=== PATIENT | male | born 1985 | race Caucasian/White ===

== ENCOUNTER 2016-11-21 06:40 | Emergency (ER) | payer OTHER ==
[~2016-11-21] VITALS: Ht 172.7 cm; Wt 92.3 kg
[2016-11-21 06:48] VITALS: Ht 172.7 cm; Wt 92.3 kg
[2016-11-21] MEDS ORDERED: SODIUM CHLORIDE 0.9% 1000ML 2,000 ML IV STA (06:55)
[2016-11-21] MEDS ORDERED: MoRPHine SULFATE 4 MG/ML 1 ML CARP\\VIAL IV STA (06:55)
[2016-11-21] MEDS ORDERED: ONDANSETRON INJ 2 MG/ML 2 ML VIAL IV STA (06:55)
--- NOTE | 2016-11-21 07:04 | EMERGENCY ROOM VISIT NOTE ---
History Report prepared by Timothy: Aide Silva Under the Supervision of: Dr. Shanelle Mcnamara M.D. First contact with patient: 06:47 Chief Complaint: FLU LIKE SX Stated Complaint: FLU LIKE SYMPTOMS History of Present Illness The patient is a 31 year old male who presents to the Emergency Room with complaints of persistent flu-like symptoms for the past 5 days. He reports nausea and vomiting intermittently for 5 days. He is also complaining of a headache and "shivering." He has felt feverish, but he has not taken his temperature. He has been taking aspirin for his symptoms but has been unable to keep it down. The patient denies hematemesis, diarrhea, abdominal pain, hematochezia, and melena. He has not had any bowel movements since his symptoms began. He recently traveled back to the area from [place] about a week and a half ago. Source of History: patient Onset: 5 days ago Position: other (global) Quality: other (flu-like symtpoms) Timing: other (persistent) Associated Symptoms: + headache, + nausea, + vomiting, No abdominal pain, No melena, No hematochezia, No diarrhea Review of Systems See HPI for pertinent positives & negatives. A total of 10 systems reviewed and were otherwise negative. Past Medical & Surgical Medical Problems: (1) Intractable vomiting (2) No significant medical problems Family History No pertinent history stated. 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 Current/Historical Medications Scheduled Ondasetron Odt (Zofran Odt), 4 MG SL Q6H Allergies Coded Allergies: No Known Allergies (Unverified , 11/21/16) Physical Exam Vital Signs Date Time Temp Pulse Resp B/P (MAP) Pulse Ox O2 Delivery O2 Flow Rate FiO2 11/21/16 11:37 36.9 76 18 95/60 98 11/21/16 11:10 36.9 73 20 95/60 98 Room Air 11/21/16 10:20 78 11/21/16 10:05 72 16 95/47 96 Room Air 11/21/16 09:10 91 21 104/59 94 Room Air 11/21/16 08:00 105 114/67 94 Room Air 11/21/16 07:52 99 23 133/80 99 Room Air 11/21/16 07:04 39.3 11/21/16 06:51 104 11/21/16 06:48 37.3 111 26 132/81 100 Room Air Physical Exam Vital signs reviewed. General: Uncomfortable-appearing 31 year old male, in no significant distress. HEENT: No scleral icterus, PERRLA, neck supple. Atraumatic. Cardiovascular: Regular rate and rhythm, no extra sounds. Pulmonary: Clear to auscultation bilaterally, normal work of breathing. Abdomen: Soft, nontender, nondistended, positive bowel sounds. Musculoskeletal: Atraumatic, no peripheral edema. Neurologic: Patient awake alert and oriented x 3, full strength in all 4 extremities. Cranial nerves 2 through 12 grossly intact. No meningeal signs. Skin: Warm, dry, no rash Medical Decision & Procedures ER Provider Diagnostic Interpretation: Radiology results as stated below per my review and radiologist interpretation: CT SCAN OF THE BRAIN WITHOUT IV CONTRAST CLINICAL HISTORY: Headache. Vomiting. COMPARISON STUDY: No priors. TECHNIQUE: Unenhanced axial CT scan of the brain is performed from the vertex to the skull base. Automated dose control exposure was utilized. A dose lowering technique was utilized adhering to the principles of ALARA. CT DOSE: 537.48 mGy.cm FINDINGS: Brain parenchyma: The brain parenchyma is normal in appearance. There is no hemorrhage, mass effect, or evidence of acute territorial ischemia by CT criteria. Godwin-white matter is preserved. No extra-axial fluid collection is seen. Ventricles, sulci, cisterns: Normal in configuration. Intracranial vasculature: The visualized intracranial vasculature at the skull base is normal in appearance. Calvarium: Unremarkable. Sinuses and mastoids: The visualized paranasal sinuses are clear. The mastoid air cells are well pneumatized. Orbits: The bony orbits are grossly intact. IMPRESSION: No acute intracranial abnormality. Electronically signed by: Frankie Babcock M.D. 11/21/2016 7:48 AM Dictated Date/Time: 11/21/2016 7:47 AM ABDOMEN 2VIEW W/PA CHEST RTN CLINICAL HISTORY: vomiting, 5 days COMPARISON STUDY: No previous studies for comparison. FINDINGS: The soft tissues, psoas shadows, renal outlines and intestinal gas pattern appear normal. There is no evidence for bowel obstruction. There is no evidence for free intraperitoneal air. No abnormal abdominal calcifications are seen. A frontal view of the chest was performed and is unremarkable. IMPRESSION: Normal study. The above report was generated using voice recognition software. It may contain grammatical, syntax or spelling errors. Electronically signed by: Renny Yee M.D. 11/21/2016 9:03 AM Dictated Date/Time: 11/21/2016 9:02 AM Laboratory Results 11/21/16 07:13 Red Blood Count 4.85, Mean Corpuscular Volume 85.4, Mean Corpuscular Hemoglobin 30.3, Mean Corpuscular Hemoglobin Concent 35.5, Mean Platelet Volume 10.0, Neutrophils (%) (Auto) 83.9, Lymphocytes (%) (Auto) 8.5, Monocytes (%) (Auto) 7.2, Eosinophils (%) (Auto) 0.2, Basophils (%) (Auto) 0.2, Neutrophils # (Auto) 5.50, Lymphocytes # (Auto) 0.56, Monocytes # (Auto) 0.47, Eosinophils # (Auto) 0.01, Basophils # (Auto) 0.01 11/21/16 07:13 Test 11/21/16 07:13 11/21/16 07:20 White Blood Count 6.55 K/uL (4.8-10.8) Red Blood Count 4.85 M/uL (4.7-6.1) Hemoglobin 14.7 g/dL (14.0-18.0) Hematocrit 41.4 % (42-52) Mean Corpuscular Volume 85.4 fL (80-100) Mean Corpuscular Hemoglobin 30.3 pg (25-34) Mean Corpuscular Hemoglobin Concent 35.5 g/dl (32-36) Platelet Count 115 K/uL (130-400) Mean Platelet Volume 10.0 fL (7.4-10.4) Neutrophils (%) (Auto) 83.9 % Lymphocytes (%) (Auto) 8.5 % Monocytes (%) (Auto) 7.2 % Eosinophils (%) (Auto) 0.2 % Basophils (%) (Auto) 0.2 % Neutrophils # (Auto) 5.50 K/uL (1.4-6.5) Lymphocytes # (Auto) 0.56 K/uL (1.2-3.4) Monocytes # (Auto) 0.47 K/uL (0.11-0.59) Eosinophils # (Auto) 0.01 K/uL (0-0.5) Basophils # (Auto) 0.01 K/uL (0-0.2) RDW Standard Deviation 40.6 fL (36.4-46.3) RDW Coefficient of Variation 13.0 % (11.5-14.5) Immature Granulocyte % (Auto) 0.0 % Immature Granulocyte # (Auto) 0.00 K/uL (0.00-0.02) Anion Gap 8.0 mmol/L (3-11) Est Creatinine Clear Calc Drug Dose 75.1 ml/min Estimated GFR () 66.5 Estimated GFR (Non- 57.4 BUN/Creatinine Ratio 7.9 (10-20) Calcium Level 9.4 mg/dl (8.5-10.1) Magnesium Level 1.7 mg/dl (1.8-2.4) Total Bilirubin 1.2 mg/dl (0.2-1) Direct Bilirubin 0.2 mg/dl (0-0.2) Aspartate Amino Transf (AST/SGOT) 23 U/L (15-37) Alanine Aminotransferase (ALT/SGPT) 22 U/L (12-78) Alkaline Phosphatase 65 U/L (45-117) Total Protein 8.2 gm/dl (6.4-8.2) Albumin 3.8 gm/dl (3.4-5.0) Lipase 143 U/L (73-393) Bedside Lactic Acid Venous 1.65 mmol/L (0.90-1.70) Laboratory results per my review. Medications Administered Medications (Trade) Dose Ordered Sig/Inessa Route Start Time Stop Time Status Last Admin Dose Admin Sodium Chloride 2,000 ml @ 999 mls/hr Q2H1M STAT IV 11/21/16 06:55 11/21/16 08:55 DC 11/21/16 07:30 999 MLS/HR Ondansetron HCl (Zofran Inj) 4 mg NOW STAT IV 11/21/16 06:55 11/21/16 06:58 DC 11/21/16 07:23 4 MG Morphine Sulfate (MoRPHine SULFATE INJ) 4 mg NOW STAT IV 11/21/16 06:55 11/21/16 06:58 DC 11/21/16 09:02 4 MG Acetaminophen 650 mg/Empty Bag 65 ml @ 260 mls/hr NOW STAT IV 11/21/16 07:05 11/21/16 07:19 DC 11/21/16 07:49 260 MLS/HR ED Course 0647: Past medical records reviewed. The patient was evaluated in room A10. A complete history and physical examination was performed. 0655: Morphine sulfate 4 mg IV, Zofran 4 mg IV, NSS 2000 ml @ 999 mls/hr IV 0705: Acetaminophen 65 ml @ 260 mls/hr IV 1045: I reassessed the patient at this time. He is feeling better and resting comfortably. I discussed the results and treatment plan with the patient. I answered all pertaining questions that he had. He expressed understanding and verbalized agreement. The patient will be discharged home. Medical Decision Differential diagnosis: Etiologies such as gastroenteritis, food borne illness, infections, appendicitis , diverticulitis, inflammatory bowel disease, obstruction, GI bleed, biliary pathology, as well as others were entertained. This patient was evaluated and appeared to be in some discomfort. IV access was obtained and laboratory work was drawn. The patient was placed with the electronic device monitor, hydrated with over saline solution. He was given IV Zofran and morphine. Patient's temperature is noted to be elevated and he was given IV Tylenol. Patient's laboratory work is fairly unrevealing, WBC count is normal. Lactic acid is normal. Patient had no further vomiting. He was discharged with supportive care. He will follow-up with [facility] this week and return to the ER for worsening of symptoms or any medical concerns. Medication Reconcilliation Current Medication List: was personally reviewed by me Blood Pressure Screening Patient's blood pressure: Normal blood pressure Impression Primary Impression: Headache Additional Impressions: Vomiting Fever Scribe Attestation The scribe's documentation has been prepared under my direction and personally reviewed by me in its entirety. I confirm that the note above accurately reflects all work, treatment, procedures, and medical decision making performed by me. Departure Information Dispostion Home / Self-Care Prescriptions Ondasetron Odt (ZOFRAN ODT) 4 Mg Tab 4 MG SL Q6H for Nausea, #6 TAB Prov: Shanelle Mcnamara M.D. 11/21/16 Referrals No Doctor, Assigned (PCP) [facility] Forms HOME CARE DOCUMENTATION FORM, IMPORTANT VISIT INFORMATION Patient Instructions My [facility] Additional Instructions Diagnosis: Headache, vomiting, viral syndrome Avoid aspirin, use tylenol 650 mg every 6 hours as needed for pain or fever. Drink plenty of clear fluids. Advance your diet slowly as tolerated. Maintain a bland diet including bananas, rice, applesauce and toast. Zofran 4 mg every 6 hours as needed for nausea. Follow-up with your physician this week for reevaluation. Return to the ER for worsening of symptoms or any medical concerns. Problem Qualifiers Primary Impression: Headache Headache type: unspecified Headache chronicity pattern: acute headache Intractability: not intractable Qualified Codes: R51 - Headache Additional Impressions: Vomiting Vomiting type: unspecified Vomiting Intractability: non-intractable Nausea presence: with nausea Qualified Codes: R11.2 - Nausea with vomiting, unspecified
[2016-11-21] MEDS ORDERED: ACETAMINOPHEN IV 650 MG in EMPTY BAG 0 ML IV STA (07:05)
[2016-11-21 07:43] LABS: BASO % 0.2 %; BASO ABS # 0.01 K/uL (0-0.2); COMPLETE YES; EOS % 0.2 %; HEMATOCRIT 41.4 % (42-52); LYMPH % 8.5 %; LYMPH ABS # 0.56 K/uL (1.2-3.4); MEAN CELL VOLUME 85.4 fL (80-100); MEAN CORPUSCULAR HEMOGLOBIN 30.3 pg (25-34); MEAN CORPUSCULAR HGB CONC 35.5 g/dl (32-36); MONO % 7.2 %; NEUT % 83.9 %; PLATELET COUNT 115 K/uL (130-400); RED BLOOD COUNT 4.85 M/uL (4.7-6.1); WHITE BLOOD COUNT 6.55 K/uL (4.8-10.8)
--- NOTE | 2016-11-21 07:49 | DIAGNOSTIC IMAGING REPORT ---
CT SCAN OF THE BRAIN WITHOUT IV CONTRAST CLINICAL HISTORY: Headache. Vomiting. COMPARISON STUDY: No priors. TECHNIQUE: Unenhanced axial CT scan of the brain is performed from the vertex to the skull base. Automated dose control exposure was utilized. A dose lowering technique was utilized adhering to the principles of ALARA. CT DOSE: 537.48 mGy.cm FINDINGS: Brain parenchyma: The brain parenchyma is normal in appearance. There is no hemorrhage, mass effect, or evidence of acute territorial ischemia by CT criteria. Godwin-white matter is preserved. No extra-axial fluid collection is seen. Ventricles, sulci, cisterns: Normal in configuration. Intracranial vasculature: The visualized intracranial vasculature at the skull base is normal in appearance. Calvarium: Unremarkable. Sinuses and mastoids: The visualized paranasal sinuses are clear. The mastoid air cells are well pneumatized. Orbits: The bony orbits are grossly intact. IMPRESSION: No acute intracranial abnormality. Electronically signed by: Frankie Babcock M.D. 11/21/2016 7:48 AM Dictated Date/Time: 11/21/2016 7:47 AM
[2016-11-21 08:00] LABS: BUN/CREATININE RATIO 7.9 (10-20); CALCIUM 9.4 mg/dl (8.5-10.1); CREATININE 1.6 mg/dl (0.60-1.40); MAGNESIUM 1.7 mg/dl (1.8-2.4); POTASSIUM 3.7 mmol/L (3.5-5.1)
[2016-11-21] MEDS ORDERED: MoRPHine SULFATE 4 MG/ML 1 ML CARP\\VIAL ONE (09:01)
--- NOTE | 2016-11-21 09:05 | DIAGNOSTIC IMAGING REPORT ---
ABDOMEN 2VIEW W/PA CHEST RTN CLINICAL HISTORY: vomiting, 5 days COMPARISON STUDY: No previous studies for comparison. FINDINGS: The soft tissues, psoas shadows, renal outlines and intestinal gas pattern appear normal. There is no evidence for bowel obstruction. There is no evidence for free intraperitoneal air. No abnormal abdominal calcifications are seen. A frontal view of the chest was performed and is unremarkable. IMPRESSION: Normal study. The above report was generated using voice recognition software. It may contain grammatical, syntax or spelling errors. Electronically signed by: Renny Yee M.D. 11/21/2016 9:03 AM Dictated Date/Time: 11/21/2016 9:02 AM
[2016-11-21] MEDS ORDERED: ONDA4TAB10 SL (11:12)
[2016-11-21 11:37] VITALS: BP 95/60; PULSE 76; TEMP 36.9; O2SAT 98
== END 2016-11-21 11:35 | disposition home or self-care (01) ==
LOC: C.EDA 06:42
DX: R51 Headache (principal); R11.2 Nausea with vomiting, unspecified

== ENCOUNTER 2016-11-21 17:05 | Emergency (ER) | payer OTHER ==
[~2016-11-21] VITALS: Ht 170.2 cm; Wt 90.0 kg
[~2016-11-21 17:05] MED LIST: ONDA4TAB10 SL
[2016-11-21] MEDS ORDERED: SODIUM CHLORIDE 0.9% 1000ML 2,000 ML IV STA (17:28)
[2016-11-21] MEDS ORDERED: KETOROLAC TROMETHAMINE 30 MG/ML VIAL IV STA (17:28)
[2016-11-21] MEDS ORDERED: ONDANSETRON INJ 2 MG/ML 2 ML VIAL IV STA (17:28)
[2016-11-21 17:58] VITALS: O2SAT 99
--- NOTE | 2016-11-21 17:59 | EMERGENCY ROOM VISIT NOTE ---
History First contact with patient: 17:19 Chief Complaint: DEHYDRATION Stated Complaint: DEHYDRATED History of Present Illness The patient is a 31 year old male who presents to the Emergency Room with complaints of headaches, fevers and chills, and vomiting that has been ongoing for the past 5 days. Patient was evaluated in this emergency department early this morning for the same symptoms, had an unremarkable workup and was given IV fluids for hydration and sent home in better condition. Patient states that since he has been home his symptoms have persisted, he vomits every time he tries to drink water or take anything by mouth including medications. He was prescribed Zofran from his visit yesterday, however he has not picked this up and taking it. He states his symptoms are worsening from this morning. He denies chest pain, shortness of breath, cough, abdominal pain, diarrhea, blood in stool, urinary discomfort, rash, joint pain or swelling. Of note, patient states he recently returned on 11/04/2016 from a 2 month visit to [facility]. He states he is concerned about malaria, as he has had this in the past in 2009, and he states he was not on any antimalarial prophylaxis while in [facility]. He states his current symptoms are similar to when he had malaria before. Review of Systems A complete 10 point review of systems was reviewed with the patient with pertinent positives and negatives as per history of present illness. All else were negative. Past Medical/Surgical History Medical Problems: (1) Intractable vomiting (2) No significant medical problems Social History Smoking Status: Never Smoker Occupation Status: [employer] student Current/Historical Medications Scheduled Ondasetron Odt (Zofran Odt), 4 MG SL Q6H Physical Exam Vital Signs Date Time Temp Pulse Resp B/P (MAP) Pulse Ox O2 Delivery O2 Flow Rate FiO2 11/21/16 20:25 37.7 100 22 110/71 100 Room Air 11/21/16 19:54 Room Air 11/21/16 19:18 39.3 108 22 116/67 99 Room Air 11/21/16 18:03 102 11/21/16 17:58 99 Room Air 11/21/16 17:11 39.5 111 16 117/71 100 Room Air Physical Exam CONSTITUTIONAL: No acute distress, but appears uncomfortable. Moderately dehydrated. Alert and oriented X 4 with normal affect. HEENT: Normocephalic, atraumatic. Pupils equal, round and reactive to light, EOMI. Photophobia. TMs normal. Pharynx normal. Dry mucous membranes. NECK: Supple, full active range of motion without discomfort. No nuchal rigidity, no meningismus. RESPIRATORY: Clear to auscultation bilaterally with no wheezing, crackles, rhonchi or stridor. Equal expansion bilaterally. CARDIOVASCULAR: Regular rate and rhythm with no murmurs, rubs or gallops. Normal peripheral perfusion. No edema. GASTROINTESTINAL: Soft, nontender, nondistended. Bowel sounds present in all quadrants. MUSCULOSKELETAL: Full range of motion of all joints without discomfort. INTEGUMENTARY: No rash or other significant dermatologic conditions noted. NEUROLOGIC: Cranial nerves II-XII grossly intact. No focal neurologic deficits noted. Medical Decision & Procedures Laboratory Results 11/21/16 18:10 Red Blood Count 4.71, Mean Corpuscular Volume 86.0, Mean Corpuscular Hemoglobin 29.9, Mean Corpuscular Hemoglobin Concent 34.8, Mean Platelet Volume 10.2, Neutrophils (%) (Auto) 49.4, Lymphocytes (%) (Auto) 11.0, Monocytes (%) (Auto) 7.7, Eosinophils (%) (Auto) 31.4, Basophils (%) (Auto) 0.3, Neutrophils # (Auto ) 3.09, Lymphocytes # (Auto) 0.69, Monocytes # (Auto) 0.48, Eosinophils # (Auto ) 1.96, Basophils # (Auto) 0.02 11/21/16 18:10 Test 11/21/16 18:10 11/21/16 18:20 11/21/16 20:45 White Blood Count 6.25 K/uL (4.8-10.8) Red Blood Count 4.71 M/uL (4.7-6.1) Hemoglobin 14.1 g/dL (14.0-18.0) Hematocrit 40.5 % (42-52) Mean Corpuscular Volume 86.0 fL (80-100) Mean Corpuscular Hemoglobin 29.9 pg (25-34) Mean Corpuscular Hemoglobin Concent 34.8 g/dl (32-36) Platelet Count 102 K/uL (130-400) Mean Platelet Volume 10.2 fL (7.4-10.4) Neutrophils (%) (Auto) 49.4 % Lymphocytes (%) (Auto) 11.0 % Monocytes (%) (Auto) 7.7 % Eosinophils (%) (Auto) 31.4 % Basophils (%) (Auto) 0.3 % Neutrophils # (Auto) 3.09 K/uL (1.4-6.5) Lymphocytes # (Auto) 0.69 K/uL (1.2-3.4) Monocytes # (Auto) 0.48 K/uL (0.11-0.59) Eosinophils # (Auto) 1.96 K/uL (0-0.5) Basophils # (Auto) 0.02 K/uL (0-0.2) RDW Standard Deviation 42.5 fL (36.4-46.3) RDW Coefficient of Variation 13.4 % (11.5-14.5) Immature Granulocyte % (Auto) 0.2 % Immature Granulocyte # (Auto) 0.01 K/uL (0.00-0.02) Anion Gap 8.0 mmol/L (3-11) Est Creatinine Clear Calc Drug Dose 83.3 ml/min Estimated GFR () 78.1 Estimated GFR (Non- 67.4 BUN/Creatinine Ratio 8.6 (10-20) Calcium Level 8.9 mg/dl (8.5-10.1) Total Bilirubin 1.4 mg/dl (0.2-1) Direct Bilirubin 0.3 mg/dl (0-0.2) Aspartate Amino Transf (AST/SGOT) 24 U/L (15-37) Alanine Aminotransferase (ALT/SGPT) 23 U/L (12-78) Alkaline Phosphatase 65 U/L (45-117) Total Protein 7.8 gm/dl (6.4-8.2) Albumin 3.6 gm/dl (3.4-5.0) Lipase 154 U/L (73-393) Prothrombin Time 13.5 SECONDS (9.0-12.0) Prothromb Time International Ratio 1.3 (0.9-1.1) Bedside Lactic Acid Venous 1.15 mmol/L (0.90-1.70) Date/Time Source Procedure Growth Status 11/21/16 18:10 Blood Parasitology Test - Final Plasmodium Not Falciparum Complete Medications Administered Medications (Trade) Dose Ordered Sig/Inessa Route Start Time Stop Time Status Last Admin Dose Admin Ketorolac Tromethamine (Toradol Inj) 15 mg NOW STAT IV 11/21/16 17:28 11/21/16 17:32 DC 11/21/16 18:12 15 MG Sodium Chloride 2,000 ml @ 999 mls/hr Q2H1M STAT IV 11/21/16 17:28 11/21/16 19:30 DC 11/21/16 18:12 999 MLS/HR Ondansetron HCl (Zofran Inj) 4 mg NOW STAT IV 11/21/16 17:28 11/21/16 17:32 DC 11/21/16 18:12 4 MG Acetaminophen (Tylenol Tab) 1,000 mg NOW STAT PO 11/21/16 18:33 11/21/16 18:56 DC 11/21/16 19:20 1,000 MG Sodium Chloride 1,000 ml @ 999 mls/hr Q1H1M STAT IV 11/21/16 20:33 11/21/16 21:33 DC 11/21/16 20:33 999 MLS/HR Medical Decision CC: Patient presenting with complaint of fever/chills, headaches, vomiting Interpretation of Labs: No leukocytosis, no anemia, thrombocytopenia, no significant electrolyte abnormalities, improved renal function with creatinine down from 1.6-1.4, slightly elevated T bili, but all other liver enzymes are within normal limits. New lactic acidosis of 2.45 when compared to this morning 's labs. UA pending. Differential Diagnosis: Includes, but not limited to dehydration, electrolyte abnormality, UTI, gastroenteritis, viral syndrome, sepsis/bacteremia, meningitis , malaria, dengue fever, among others. Medication Reconciliation: I attest that I have personally reviewed the patient' s current medication list. Vital signs review: I reviewed the patient's vital signs and interpret them as follows: T: Afebrile; BP: Normotensive; HR: Tachycardic; RR: Within normal limits; Pulse Ox: Within normal limits on room air. Summary: Patient was evaluated at bedside, history of physical exam performed. Patient is alert and in no acute distress, but does appear uncomfortable and complaining of severe headache and chills. Neurologic exam is intact, no focal deficits. No nuchal rigidity or meningismus. He does have photophobia. Abdomen is entirely benign, soft and nontender. Patient complains of nausea but is not actively vomiting. Due to patient's recent travel to [place], there is additional concern for some travel related illnesses such as malaria and dengue fever. Patient does report a history of malaria in the past with similar symptoms to his present complaints. Orders were placed at bedside for labs, UA, blood cultures, peripheral smear to assess for malaria, aggressive IV fluid hydration, Zofran and Toradol. Review of head CT, chest and abdomen x-rays from this morning reveal no acute abnormalities. Patient discussed with Dr. Donovan, who agrees with my assessment and plan. Labs reviewed as above. Improving renal function. Lactic acidosis. Patient was discussed with the Hospitalist service, Alize Nuno PA-C, who who did evaluate the patient. Dr. Donovan and myself spent several minutes with the patient explaining the concern for meningitis and recommendation for LP. The LP procedure was explained to the patient, as well as risks and benefits of performing the procedure. Patient is reluctant to have this procedure done and states he wants to wait for the malaria results. The patient was clearly presented with the risks of delayed treatment by Dr. Donovan and myself, specifically risk of potential or disability, patient continues to adamantly refuse LP and antibiotics at this time. Pathologist evaluated the peripheral smear, noting that it is positive for malaria, Plasmodium vivax, <2.5% The patient does not meet any criteria for severe malaria at this time. I do believe that he warrants admission, however, due to his dehydration and poor symptom management at home. Patient reassessed multiple times throughout ED stay, he is much improved after IV fluids and Toradol, no longer febrile and tachycardia improving, vitals have remained otherwise stable. He also reports improved nausea and headache. Repeat lactic acid level I.15 after 2 L of fluid. After discussions with the pharmacy and Dr. Garcia (ID), it is apparent that we do not have the appropriate medications to treat the patient's malaria on formulary here and are unable to obtain these in a timely manner. Dr. Garcia agrees based on patient's clinical symptoms and the region where he visited that he should most likely have a Chloroquine susceptible strain of P. vivax. I spoke to Dr. Soliz (IM) and Dr. Christie (ID) on the transfer center line at [facility] regarding the patient, they do have the appropriate medications to treat the patient's malaria and accept him as a transfer for direct admission. Patient was updated on all results and plan for transfer to be admitted at [facility], he verbalized understanding and is agreeable to this plan. 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 Soliz is the accepting physician for a direct admission) Condition GOOD Referrals No Doctor, Assigned (PCP) Patient Instructions My [facility] Problem Qualifiers
[2016-11-21 18:24] LABS: BASO % 0.3 %; BASO ABS # 0.02 K/uL (0-0.2); COMPLETE YES; EOS % 31.4 %; HEMATOCRIT 40.5 % (42-52); IG% 0.2 %; LYMPH ABS # 0.69 K/uL (1.2-3.4); MEAN CORPUSCULAR HEMOGLOBIN 29.9 pg (25-34); MEAN CORPUSCULAR HGB CONC 34.8 g/dl (32-36); MEAN PLATELET VOLUME 10.2 fL (7.4-10.4); MONO % 7.7 %; NEUT % 49.4 %; PLATELET COUNT 102 K/uL (130-400); RED BLOOD COUNT 4.71 M/uL (4.7-6.1); WHITE BLOOD COUNT 6.25 K/uL (4.8-10.8)
[2016-11-21] MEDS ORDERED: ACETAMINOPHEN 500 MG TAB PO STA (18:33)
[2016-11-21 18:42] LABS: BUN/CREATININE RATIO 8.6 (10-20); CALCIUM 8.9 mg/dl (8.5-10.1); CREATININE 1.4 mg/dl (0.60-1.40); POTASSIUM 3.7 mmol/L (3.5-5.1)
[2016-11-21] MEDS ORDERED: SODIUM CHLORIDE 0.9% 1000ML 1,000 ML IV SCH ×2 (18:45→22:30)
[2016-11-21] MEDS ORDERED: ACETAMINOPHEN 325 MG TAB PO PRN (18:45)
[2016-11-21] MEDS ORDERED: ONDANSETRON INJ 2 MG/ML 2 ML VIAL IV PRN (18:45)
[2016-11-21 19:06] LABS: INR 1.3 (0.9-1.1); PROTHROMBIN TIME (PATIENT) 13.5 SECONDS (9.0-12.0)
--- NOTE | 2016-11-21 19:31 | Medical Consult ---
Consultation Date of Consultation: Nov 21, 2016. Attending Physician: Reason for Consultation: Intractable vomiting, headache History of Present Illness This patient is a 31-year-old male that presents to the emergency department for the second time today with complaints of intractable vomiting, headache and fever. His symptoms have been going on for 5 days. The patient has tried aspirin and Zofran at home. He reports not being able to keep any medications down. He has not actually taken his temperature at home. He describes the headache as throbbing all over his head. He is also experiencing photosensitivity. He denies any severe neck pain. He denies any abdominal pain or diarrhea. No difficulty breathing or chest pain. The patient recently traveled to [facility]. He returned back to the [facility] at the end on November 05. The patient reports having malaria in the past. He says that his symptoms are very similar. He did not take any malarial prophylaxis during his travels. 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 Allergies Coded Allergies: No Known Allergies (Unverified , 11/21/16) Current Inpatient Medications Current Inpatient Medications Medications (Trade) Dose Ordered Sig/Inessa Route Start Time Stop Time Status Last Admin Dose Admin Sodium Chloride 2,000 ml @ 999 mls/hr Q2H1M STAT IV 11/21/16 17:28 11/21/16 19:28 11/21/16 18:12 999 MLS/HR Acetaminophen (Tylenol Tab) 650 mg Q4H PRN PO 11/21/16 18:45 12/21/16 18:44 Ondansetron HCl (Zofran Inj) 4 mg Q6H PRN IV 11/21/16 18:45 12/21/16 18:44 Sodium Chloride 1,000 ml @ 150 mls/hr Q6H40M IV 11/21/16 18:45 12/21/16 18:44 Review of Systems 10 system review performed and negative unless noted in HPI or below Physical Exam Date Time Temp Pulse Resp B/P (MAP) Pulse Ox O2 Delivery O2 Flow Rate FiO2 11/21/16 19:18 39.3 108 22 116/67 99 Room Air 11/21/16 18:03 102 11/21/16 17:58 99 Room Air 11/21/16 17:11 39.5 111 16 117/71 100 Room Air General Appearance: + severe distress (in significant discomfort.) Head: normocephalic Eyes: PERRL, EOMI ENT: + pertinent finding (oral mucosa slightly dry.) Neck: no JVD Respiratory/Chest: lungs clear Cardiovascular: + tachycardia Abdomen/GI: normal bowel sounds, non tender, soft, + pertinent finding (no organomegaly appreciated.) Extremities/Musculoskelatal: no calf tenderness, no pedal edema Neurologic/Psych: no motor/sensory deficits, oriented x 3, + pertinent finding (no nuchal rigidity noted.) Skin: warm/dry Laboratory Results Last 24 Hours Test 11/21/16 18:10 11/21/16 18:14 11/21/16 18:20 White Blood Count 6.25 K/uL Red Blood Count 4.71 M/uL Hemoglobin 14.1 g/dL Hematocrit 40.5 % Mean Corpuscular Volume 86.0 fL Mean Corpuscular Hemoglobin 29.9 pg Mean Corpuscular Hemoglobin Concent 34.8 g/dl Platelet Count 102 K/uL Mean Platelet Volume 10.2 fL Neutrophils (%) (Auto) 49.4 % Lymphocytes (%) (Auto) 11.0 % Monocytes (%) (Auto) 7.7 % Eosinophils (%) (Auto) 31.4 % Basophils (%) (Auto) 0.3 % Neutrophils # (Auto) 3.09 K/uL Lymphocytes # (Auto) 0.69 K/uL Monocytes # (Auto) 0.48 K/uL Eosinophils # (Auto) 1.96 K/uL Basophils # (Auto) 0.02 K/uL RDW Standard Deviation 42.5 fL RDW Coefficient of Variation 13.4 % Immature Granulocyte % (Auto) 0.2 % Immature Granulocyte # (Auto) 0.01 K/uL Sodium Level 134 mmol/L Potassium Level 3.7 mmol/L Chloride Level 104 mmol/L Carbon Dioxide Level 22 mmol/L Anion Gap 8.0 mmol/L Blood Urea Nitrogen 12 mg/dl Creatinine 1.40 mg/dl Est Creatinine Clear Calc Drug Dose 83.3 ml/min Estimated GFR () 78.1 Estimated GFR (Non- 67.4 BUN/Creatinine Ratio 8.6 Random Glucose 87 mg/dl Calcium Level 8.9 mg/dl Total Bilirubin 1.4 mg/dl Direct Bilirubin 0.3 mg/dl Aspartate Amino Transf (AST/SGOT) 24 U/L Alanine Aminotransferase (ALT/SGPT) 23 U/L Alkaline Phosphatase 65 U/L Total Protein 7.8 gm/dl Albumin 3.6 gm/dl Lipase 154 U/L Bedside Lactic Acid Venous 2.45 mmol/L Prothrombin Time 13.5 SECONDS Prothromb Time International Ratio 1.3 Assessment & Plan This patient is a 31-year-old male with recent travel to [place] that presented to the emergency department with severe headache, fever and vomiting. There is a significant concern for malaria. Given the fact that there has been two resistant cases of malaria in the area, I would recommend contacting the [facility] Department in addition to doing a peripheral smear. This patient should likely be transferred to a tertiary care center (or to the location per recommendation of the [facility]) where treatment of highly resistant malaria is more readily available Attending Addendum: I have physically seen and examined this patient, have directed the physician assistants medical activities, and agree with the H&P as noted above with the following exceptions: NONE The patient is awake, well-developed and adequately nourished, alert and oriented 3, normocephalic and atraumatic, lying in bed and in no acute distress. HEENT--PERRL, EOMI, mucous membranes and oropharynx dry. Neck--supple, no JVD or bruits, thyroid normal, trachea midline, no adenopathy. Heart--normal S1 and S2, no extra beats, no murmurs, rubs or gallops. Lungs--clear bilaterally with good air movement, no respiratory distress, no accessory muscle use. Abdomen--normal bowel sounds and soft, nontender and nondistended, no hernias or masses, no organomegaly. Extremities--no cyanosis, clubbing or edema. There are good distal pulses b/l. Dermatologic--normal skin turgor, normal color, warm and dry, no abnormal lymph nodes, no rash. Neurologic--cranial nerves II through XII grossly intact, motor and sensory examination normal. Rheumatologic--normal range of motion, nontender, muscles and joints. Psychiatric--normal affect. Assessment and Plan: 1. Acute malaria infection-- There've been number of resistant cases of malaria recently presenting to [facility]. I've advised the emergency department physician to contact the [facility] regarding their recommendations for treatment. The most recent recommendations from the Department have been for IV medications that are not stocked at this hospital and the patient's had to be transferred to the [facility] for treatment. Taking that into consideration, my advice is for this patient be transferred to tertiary care center.
[2016-11-21 19:54] VITALS: Ht 170.2 cm; Wt 90.0 kg
[2016-11-21] MEDS ORDERED: SODIUM CHLORIDE 0.9% 1000ML 1,000 ML IV STA (20:33)
--- NOTE | 2016-11-21 22:40 | EMERGENCY ROOM VISIT NOTE ---
ED Visit Note First contact with patient: 17:19 HPI: Head, f/c, n/v x multiple days, recently arrived from [place]. PE: Febrile 39.5, tach 110s, uncomfortable NC/AT MM dry, no edema/injection posterior pharynx. Neck supple, No meningismus ST, no murmurs CTAB Abd soft NT/ND Ext: no edema, erythema Skin: Warm, moist. Neuro: grossly intact Plan: Lactate increased from ED visit earlier today. Cleared with IVF in ED. LP d/w patient however refusing despite our recommendation. In the interim smear expedited and + for malaria explaining source, formally reviewed by pathologist who believes c/w Vivax. Complete recommended Vivax coverage not readily available. Verónica RUIZ, d/w ID and recs for transfer to facility who has medications available. Arrangements made with [facility] who accepted patient. I reviewed the patient's past medical history, medications, and visit nursing notes. I discussed the case with the physician credit assistant, examined the patient, and agree with the findings and plan as documented in the physician assistants note. Problem List Medical Problems: (1) No significant medical problems Status: Chronic Current/Historical Medications Scheduled Ondasetron Odt (Zofran Odt), 4 MG SL Q6H Allergies Coded Allergies: No Known Allergies (Unverified , 11/21/16) Vital Signs Date Time Temp Pulse Resp B/P (MAP) Pulse Ox O2 Delivery O2 Flow Rate FiO2 11/22/16 00:59 100 20 105/73 99 Room Air 11/21/16 23:32 36.8 76 20 104/64 100 Room Air 11/21/16 22:02 98 11/21/16 21:58 79 20 111/62 98 11/21/16 20:25 37.7 100 22 110/71 100 Room Air 11/21/16 19:54 Room Air 11/21/16 19:18 39.3 108 22 116/67 99 Room Air 11/21/16 18:03 102 11/21/16 17:58 99 Room Air 11/21/16 17:11 39.5 111 16 117/71 100 Room Air Laboratory Results 11/21/16 18:10 Red Blood Count 4.71, Mean Corpuscular Volume 86.0, Mean Corpuscular Hemoglobin 29.9, Mean Corpuscular Hemoglobin Concent 34.8, Mean Platelet Volume 10.2, Neutrophils (%) (Auto) 49.4, Lymphocytes (%) (Auto) 11.0, Monocytes (%) (Auto) 7.7, Eosinophils (%) (Auto) 31.4, Basophils (%) (Auto) 0.3, Neutrophils # (Auto ) 3.09, Lymphocytes # (Auto) 0.69, Monocytes # (Auto) 0.48, Eosinophils # (Auto ) 1.96, Basophils # (Auto) 0.02 11/21/16 18:10 Test 11/21/16 18:10 11/21/16 18:20 11/21/16 20:45 White Blood Count 6.25 K/uL (4.8-10.8) Red Blood Count 4.71 M/uL (4.7-6.1) Hemoglobin 14.1 g/dL (14.0-18.0) Hematocrit 40.5 % (42-52) Mean Corpuscular Volume 86.0 fL (80-100) Mean Corpuscular Hemoglobin 29.9 pg (25-34) Mean Corpuscular Hemoglobin Concent 34.8 g/dl (32-36) Platelet Count 102 K/uL (130-400) Mean Platelet Volume 10.2 fL (7.4-10.4) Neutrophils (%) (Auto) 49.4 % Lymphocytes (%) (Auto) 11.0 % Monocytes (%) (Auto) 7.7 % Eosinophils (%) (Auto) 31.4 % Basophils (%) (Auto) 0.3 % Neutrophils # (Auto) 3.09 K/uL (1.4-6.5) Lymphocytes # (Auto) 0.69 K/uL (1.2-3.4) Monocytes # (Auto) 0.48 K/uL (0.11-0.59) Eosinophils # (Auto) 1.96 K/uL (0-0.5) Basophils # (Auto) 0.02 K/uL (0-0.2) RDW Standard Deviation 42.5 fL (36.4-46.3) RDW Coefficient of Variation 13.4 % (11.5-14.5) Immature Granulocyte % (Auto) 0.2 % Immature Granulocyte # (Auto) 0.01 K/uL (0.00-0.02) Anion Gap 8.0 mmol/L (3-11) Est Creatinine Clear Calc Drug Dose 83.3 ml/min Estimated GFR () 78.1 Estimated GFR (Non- 67.4 BUN/Creatinine Ratio 8.6 (10-20) Calcium Level 8.9 mg/dl (8.5-10.1) Total Bilirubin 1.4 mg/dl (0.2-1) Direct Bilirubin 0.3 mg/dl (0-0.2) Aspartate Amino Transf (AST/SGOT) 24 U/L (15-37) Alanine Aminotransferase (ALT/SGPT) 23 U/L (12-78) Alkaline Phosphatase 65 U/L (45-117) Total Protein 7.8 gm/dl (6.4-8.2) Albumin 3.6 gm/dl (3.4-5.0) Lipase 154 U/L (73-393) Prothrombin Time 13.5 SECONDS (9.0-12.0) Prothromb Time International Ratio 1.3 (0.9-1.1) Bedside Lactic Acid Venous 1.15 mmol/L (0.90-1.70) Date/Time Source Procedure Growth Status 11/21/16 18:10 Blood Parasitology Test - Final Plasmodium Not Falciparum Complete Medications Administered Medications (Trade) Dose Ordered Sig/Inessa Route Start Time Stop Time Status Last Admin Dose Admin Ketorolac Tromethamine (Toradol Inj) 15 mg NOW STAT IV 11/21/16 17:28 11/21/16 17:32 DC 11/21/16 18:12 15 MG Sodium Chloride 2,000 ml @ 999 mls/hr Q2H1M STAT IV 11/21/16 17:28 11/21/16 19:30 DC 11/21/16 18:12 999 MLS/HR Ondansetron HCl (Zofran Inj) 4 mg NOW STAT IV 11/21/16 17:28 11/21/16 17:32 DC 11/21/16 18:12 4 MG Acetaminophen (Tylenol Tab) 1,000 mg NOW STAT PO 11/21/16 18:33 11/21/16 18:56 DC 11/21/16 19:20 1,000 MG Sodium Chloride 1,000 ml @ 999 mls/hr Q1H1M STAT IV 11/21/16 20:33 11/21/16 21:33 DC 11/21/16 20:33 999 MLS/HR Sodium Chloride 1,000 ml @ 250 mls/hr Q4H IV 11/21/16 22:30 11/22/16 02:51 DC 11/21/16 22:30 250 MLS/HR Departure Information Referrals No Doctor, Assigned (PCP) Patient Instructions [facility]
[2016-11-21 23:32] VITALS: TEMP 36.8
[2016-11-22 00:59] VITALS: BP 105/73; PULSE 100; O2SAT 99
== END 2016-11-22 01:08 | disposition short-term general hospital (02) ==
LOC: C.EDB 17:06 → CANBEDREQ 19:01 → C.EDC 11-22 01:08
DX: B51.9 Plasmodium vivax malaria without complication (principal); E86.0 Dehydration

== ENCOUNTER 2017-05-01 02:42 | Emergency (ER) | payer OTHER ==
[~2017-05-01] VITALS: Ht 170.2 cm; Wt 88.0 kg
[2017-05-01 02:52] VITALS: TEMP 36.5; O2SAT 95; Ht 170.2 cm; Wt 88.0 kg
[2017-05-01 03:26] LABS: CREATININE 1.12 mg/dl (0.60-1.40); POTASSIUM 3.8 mmol/L (3.5-5.1)
--- NOTE | 2017-05-01 03:53 | EMERGENCY ROOM VISIT NOTE ---
History First contact with patient: 02:46 Chief Complaint: ALCOHOL OVERDOSE Stated Complaint: ALCOHOL Nursing Triage Summary: pt arrives BLS from campus. pt was in a computer lab and throwing things. broke a chair and his cell phone. pt was aggressive with police and EMS. pt admits to 5 large glasses of Vodka. was unable to call a sober friend because his phone was broken. History of Present Illness The patient is a 32 year old male who presents to the Emergency Room with complaints of alcohol intoxication who was at the [employer] and broke a chair and his cellphone because he was upset. Patient states he's had some alcohol. No drugs. Patient denies chest pain, dyspnea, abdominal pain or any other medical complaints. Review of Systems See HPI for pertinent positives & negatives. A total of 10 systems reviewed and were otherwise negative. Past Medical/Surgical History Medical Problems: (1) Intractable vomiting (2) No significant medical problems Social History Smoking Status: Never Smoker Alcohol Use: occasionally Drug Use: none Marital Status: single Occupation Status: [employer] student Current/Historical Medications No Active Prescriptions or Reported Meds Physical Exam Vital Signs Date Time Temp Pulse Resp B/P (MAP) Pulse Ox O2 Delivery O2 Flow Rate FiO2 05/01/17 02:54 107 05/01/17 02:52 36.5 106 14 136/85 97 Room Air 05/01/17 02:52 95 Room Air Physical Exam PHYSICAL EXAM: VITALS: Vitals are noted on the nurse's note and reviewed by myself. Vital signs stable. GENERAL: Male with EtOH odor, in no acute distress, nondiaphoretic, well- developed well-nourished. The patient is visibly intoxicated. SKIN: The skin was without obvious lacerations, abrasions, or rashes. There is no tenting of the skin. Capillary reflex less than 2 seconds. HEENT: Normocephalic, atraumatic. PERRLA. EOMI. Conjunctiva with mild injection without icterus. Tympanic membranes without erythema or effusion bilaterally no hemotympanum. External auditory canals are clear. Nares patent bilaterally. No epistaxis. Oropharynx without erythema or exudate. Uvula midline. Oral mucosal moist. No lymphadenopathy. Neck is supple without cervical spine tenderness. HEART: Regular rate and rhythm without murmurs gallops or rubs. Peripheral pulses 2+. LUNGS: Clear to auscultation bilaterally without wheezes, rales or rhonchi. ABDOMEN: Positive bowel sounds x 4. Normal tympanic percussion. Soft, nontender, without masses or organomegaly. MUSCULOSKELETAL: Gross motor function of the upper and lower extremities intact. The patient has a staggering gait. NEUROLOGIC: The patient is visibly intoxicated. Once they were more sober they were alert and oriented to person place and time. Medical Decision & Procedures Laboratory Results 05/01/17 02:58 Test 05/01/17 02:58 Anion Gap 7.0 mmol/L (3-11) Est Creatinine Clear Calc Drug Dose 102.1 ml/min Estimated GFR () 101.6 Estimated GFR (Non- 87.7 BUN/Creatinine Ratio 14.7 (10-20) Calcium Level 9.0 mg/dl (8.5-10.1) Ethyl Alcohol mg/dL 151.0 mg/dl (0-3) ED Course Prior records/ancillary studies reviewed. Triage Nursing notes reviewed. Additional history obtained from EMS. The patient's history was concerning for altered mental status and a possible alcohol overdose. Differential diagnosis: Etiologies such as alcohol intoxication, toxicologic, infection, hypoglycemia, electrolyte abnormalities, cardiac sources, intracerebral event, neurologic, as well as others were entertained. Physical examination: As above. The patient is clinically intoxicated. no trauma noted. ER treatment provided: Monitoring Aspiration precautions The patient was frequently reassessed. Diagnostic interpretation by me: Cardiac monitoring did not reveal any evidence of dysrhythmia. The labs revealed no worrisome electrolyte abnormality. The patient's blood alcohol level was 151 mg/dL. The patient's history was reviewed once they were more coherent and their intoxication cleared. The patient states they have been in good health recently and had no medical complaints. The patient admitted to consuming alcohol. No additional concerning findings were noted. The patient complained of no symptoms to suggest assault. This appears to be consistent with an isolated overdose of alcohol. By the evaluation outlined above emergent etiologies such as trauma, infection, hypoglycemia, electrolyte abnormalities, cardiac sources, intracerebral event, neurologic,as well as others were deemed relatively unlikely. The patient was informed about the findings as listed above. The patient was counseled on the dangers of excessive alcohol use. I gave my usual and customary discussion regarding this issue. All questions were answered and the patient was pleased with the treatment. Return instructions were outlined and the patient was discharged in stable condition once their mental status improved and a safe destination was confirmed. Outpatient prescription management: None Referral: The patient was referred back to their primary care physician for follow-up in 2 to 3 days for a recheck of their current condition. Medical Decision As above Medication Reconcilliation Current Medication List: was personally reviewed by me Blood Pressure Screening Patient's blood pressure: Normal blood pressure Impression Primary Impression: Alcohol use with intoxication Departure Information Dispostion Home / Self-Care Condition GOOD Prescriptions No Active Prescriptions or Reported Meds Referrals No Doctor, Assigned (PCP) Patient Instructions My [facility] [place] Additional Instructions Keep well-hydrated. Tylenol every 6 hours as needed for pain (Maximum 3000 mg Tylenol in 24 hr period). Follow up with family doctor and/or health services as needed. No driving for the next 24 hours. Recommend no alcohol for the next 48 hours and avoid binge drinking in the future. Return to ER sooner for chest pain, abdominal pain, worsening signs or symptoms or as needed.
[2017-05-01 04:27] VITALS: BP 119/58; PULSE 79; O2SAT 98
== END 2017-05-01 04:48 | disposition home or self-care (01) ==
LOC: EDBD 02:42 → C.EDA 02:45
DX: F10.129 Alcohol abuse with intoxication, unspecified (principal); Y90.6 Blood alcohol level of 120-199 mg/100 ml

== ENCOUNTER 2017-07-26 02:21 | Inpatient (IN) | payer OTHER ==
[~2017-07-26] VITALS: Ht 170.2 cm; Wt 83.4 kg
[2017-07-26] MEDS ORDERED: IBUPROFEN 600 MG TAB PO STA (02:45)
[2017-07-26] MEDS ORDERED: SODIUM CHLORIDE 0.9% 1000ML 1,000 ML IV STA ×3 (02:45→04:19)
[2017-07-26] MEDS ORDERED: ACETAMINOPHEN 500 MG TAB PO STA (02:45)
[2017-07-26 03:28] LABS: CALCIUM 9.3 mg/dl (8.5-10.1); CREATININE 1.69 mg/dl (0.60-1.40); POTASSIUM 3.3 mmol/L (3.5-5.1)
[2017-07-26 03:31] LABS: TOTAL PROTEIN 8.1 gm/dl (6.4-8.2)
[2017-07-26 03:44] LABS: INFLUENZA B ANTIGEN Neg for Influ B (NEG)
[2017-07-26 03:53] LABS: HEMATOCRIT 41.9 % (42-52); MEAN CELL VOLUME 85.3 fL (80-100); MEAN CORPUSCULAR HEMOGLOBIN 30.5 pg (25-34); MEAN CORPUSCULAR HGB CONC 35.8 g/dl (32-36); MEAN PLATELET VOLUME 9.9 fL (7.4-10.4); PLATELET COUNT 98 K/uL (130-400); RED CELL DISTRIBUTION WIDTH CV 12.6 % (11.5-14.5); RED CELL DISTRIBUTION WIDTH SD 39.2 fL (36.4-46.3); WHITE BLOOD COUNT 8.04 K/uL (4.8-10.8)
[2017-07-26 04:06] LABS: BASO % 0.1 %; BASO ABS # 0.01 K/uL (0-0.2); EOS % 13.6 %; EOS ABS # 1.09 K/uL (0-0.5); IG# 0.01 K/uL (0.00-0.02); LYMPH % 6.6 %; LYMPH ABS # 0.53 K/uL (1.2-3.4); MONO % 5.8 %; MONO ABS # 0.47 K/uL (0.11-0.59); NEUT % 73.8 %; NEUT ABS # 5.93 K/uL (1.4-6.5)
[2017-07-26] MEDS ORDERED: KETOROLAC TROMETHAMINE 15 MG/ML VIAL IV STA (05:32)
[2017-07-26] MEDS ORDERED: ATOVAQUONE PO STA ×2 (05:58→06:06)
[2017-07-26] MEDS ORDERED: PROGUANIL HCL PO STA ×2 (05:58→06:06)
--- NOTE | 2017-07-26 06:15 | EMERGENCY ROOM VISIT NOTE ---
History First contact with patient: 02:33 Chief Complaint: ILLNESS Stated Complaint: CAN'T BREATHE History of Present Illness The patient is a 32 year old male who presents to the Emergency Room with complaints of flulike symptoms. The patient reports that he has had a headache , fever, nausea and vomiting for the past 4 days. He reports that he has been shivering. He has not taken his temperature. The headache is located all over and he rates his discomfort a 4/10. He denies neck stiffness. He states that these are the same symptoms that he had when he was diagnosed with malaria in November 2016. He was then treated at [facility] but feels that he was not fully treated. He denies any recent travel outside of the country. He denies chest pain, shortness of breath, cough or abdominal pain. Review of Systems A complete 10 point review of systems was reviewed with the patient with pertinent positives and negatives as per history of present illness. All else were negative. 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 Current/Historical Medications No Active Prescriptions or Reported Meds Physical Exam Vital Signs Date Time Temp Pulse Resp B/P (MAP) Pulse Ox O2 Delivery O2 Flow Rate FiO2 07/26/17 06:35 36.8 82 18 100/57 99 Room Air 07/26/17 06:29 73 07/26/17 05:53 77 18 99/49 99 Room Air 07/26/17 05:13 80 18 91/49 99 Room Air 07/26/17 04:36 96 16 97/39 98 Room Air 07/26/17 04:14 37.7 95 24 92/44 95 Room Air 07/26/17 03:21 98 26 100 07/26/17 03:10 98 Room Air 07/26/17 03:06 97/53 07/26/17 03:00 101 07/26/17 02:26 37.8 125 32 112/37 96 Room Air Physical Exam VITALS: Vitals are noted on the nurse's note and reviewed by myself. Vital signs stable. GENERAL: This is a 32-year-old male, ill-appearing, answers questions slowly and very quietly. SKIN: The skin was without rashes. HEAD: Normocephalic atraumatic. EARS: External auditory canals clear, tympanic membranes pearly matute without erythema or effusion bilaterally. EYES: Pupils equal round and reactive to light and accommodation. Conjunctivae without injection, sclerae without icterus. Extraocular movements intact. MOUTH: Mucous membranes moist. Tonsils are not enlarged. Pharynx without erythema or exudate. NECK: Supple without nuchal rigidity. No lymphadenopathy. Full range of motion of the neck. No meningismus. HEART: Regular rate and rhythm without murmurs gallops or rubs. LUNGS: Clear to auscultation bilaterally without wheezes, rales or rhonchi. No retractions or accessory muscle use. ABDOMEN: Positive bowel sounds x 4. Soft, nontender to palpation. NEURO: Patient was alert and oriented to person place and time. Medical Decision & Procedures ER Provider Diagnostic Interpretation: CHEST ONE VIEW: No consolidation. Cardiac silhouette normal. Laboratory Results 07/26/17 03:00 Red Blood Count 4.91, Mean Corpuscular Volume 85.3, Mean Corpuscular Hemoglobin 30.5, Mean Corpuscular Hemoglobin Concent 35.8, Mean Platelet Volume 9.9, Neutrophils (%) (Auto) 73.8, Lymphocytes (%) (Auto) 6.6, Monocytes (%) (Auto) 5.8, Eosinophils (%) (Auto) 13.6, Basophils (%) (Auto) 0.1, Neutrophils # (Auto ) 5.93, Lymphocytes # (Auto) 0.53, Monocytes # (Auto) 0.47, Eosinophils # (Auto ) 1.09, Basophils # (Auto) 0.01 Test 07/26/17 02:50 07/26/17 03:00 07/26/17 05:15 Influenza Type A Antigen Neg for Influ A (NEG) Influenza Type B Antigen Neg for Influ B (NEG) White Blood Count 8.04 K/uL (4.8-10.8) Red Blood Count 4.91 M/uL (4.7-6.1) Hemoglobin 15.0 g/dL (14.0-18.0) Hematocrit 41.9 % (42-52) Mean Corpuscular Volume 85.3 fL (80-100) Mean Corpuscular Hemoglobin 30.5 pg (25-34) Mean Corpuscular Hemoglobin Concent 35.8 g/dl (32-36) Platelet Count 98 K/uL (130-400) Mean Platelet Volume 9.9 fL (7.4-10.4) Neutrophils (%) (Auto) 73.8 % Lymphocytes (%) (Auto) 6.6 % Monocytes (%) (Auto) 5.8 % Eosinophils (%) (Auto) 13.6 % Basophils (%) (Auto) 0.1 % Neutrophils # (Auto) 5.93 K/uL (1.4-6.5) Lymphocytes # (Auto) 0.53 K/uL (1.2-3.4) Monocytes # (Auto) 0.47 K/uL (0.11-0.59) Eosinophils # (Auto) 1.09 K/uL (0-0.5) Basophils # (Auto) 0.01 K/uL (0-0.2) RDW Standard Deviation 39.2 fL (36.4-46.3) RDW Coefficient of Variation 12.6 % (11.5-14.5) Immature Granulocyte % (Auto) 0.1 % Immature Granulocyte # (Auto) 0.01 K/uL (0.00-0.02) Platelet Estimate DECREASED Globulin 4.1 gm/dl (2.5-4.0) Albumin/Globulin Ratio 1.0 (0.9-2) Urine Color YELLOW Urine Appearance CLEAR (CLEAR) Urine pH 7.0 (4.5-7.5) Urine Specific [place] 1.006 (1.000-1.030) Urine Protein NEG (NEG) Urine Glucose (UA) NEG (NEG) Urine Ketones TRACE (NEG) Urine Occult Blood NEG (NEG) Urine Nitrite NEG (NEG) Urine Bilirubin NEG (NEG) Urine Urobilinogen NEG (NEG) Urine Leukocyte Esterase NEG (NEG) Date/Time Source Procedure Growth Status 07/26/17 03:00 Blood Parasitology Test - Final Plasmodium Not Falciparum Complete Medications Administered Medications (Trade) Dose Ordered Sig/Inessa Route Start Time Stop Time Status Last Admin Dose Admin Sodium Chloride 1,000 ml @ 999 mls/hr Q1H1M STAT IV 07/26/17 02:45 07/26/17 03:45 DC 07/26/17 03:07 999 MLS/HR Ibuprofen (Motrin Tab) 600 mg NOW STAT PO 07/26/17 02:45 07/26/17 02:47 DC 07/26/17 03:06 600 MG Acetaminophen (Tylenol Tab) 1,000 mg NOW STAT PO 07/26/17 02:45 07/26/17 02:47 DC 07/26/17 03:06 1,000 MG Sodium Chloride 1,000 ml @ 999 mls/hr Q1H1M STAT IV 07/26/17 03:30 07/26/17 04:30 DC 07/26/17 03:48 999 MLS/HR Sodium Chloride 1,000 ml @ 999 mls/hr Q1H1M STAT IV 07/26/17 04:19 07/26/17 05:19 DC 07/26/17 04:39 999 MLS/HR Ketorolac Tromethamine (Toradol Inj) 15 mg NOW STAT IV 07/26/17 05:32 07/26/17 05:33 DC 07/26/17 05:39 15 MG Atovaquone/ Proguanil (Malarone 62.5/ 25 Mg Tab) 1 tab NOW STAT PO 07/26/17 06:06 07/26/17 06:07 DC 07/26/17 06:13 1 TAB ED Course The patient was evaluated as above. Labs were drawn and IV access was obtained. Patient was medicated with 1 g Tylenol, 600 mg ibuprofen, and 2 L normal saline solution. Lab called and reported that the peripheral smear is positive for malaria. Infectious disease was paged. Patient was given a third 1 L bolus of normal saline solution due to borderline hypotension. I spoke with Dr. Garcia of infectious disease. She states that we now stock Malarone in the hospital. One tablet of this was ordered for the patient. Case was discussed with the [facility] hospitalist, Dr. Hair. They agreed to evaluate the patient for admission. Medical Decision Differential diagnosis includes malaria, influenza, pneumonia, sepsis, viral illness, meningitis, among others. The patient is a 32-year-old male who presents today complaining of headache and vomiting. Patient reports history of malaria and states that the symptoms feel similar to his previous episode. Patient was seen here in November 2016 and was transferred to [place] for treatment. Review of his previous records shows that patient had Plasmodium vivax at that time. Patient has not traveled out of the country since then. Labs revealed no leukocytosis. Mild thrombocytopenia with platelet count of 98. Patient's initial lactic acid was elevated at 2.7. His creatinine was also elevated at 1.69, suggestive of dehydration. Influenza testing negative. Parasite smear was performed and lab did call to report that malaria was seen. Dr. Garcia of infectious disease was consulted and recommended treatment with Malarone, which is stopped at the hospital now. Patient was treated with IV fluids. Blood pressure was borderline hypotensive, although this may be the patient's baseline. He was admitted to the [facility] service for further treatment. Medication Reconcilliation Current Medication List: was personally reviewed by dc Blood Pressure Screening Patient's blood pressure: Low blood pressure (will be followed by hospitalist) Impression Primary Impression: Malaria Departure Information Prescriptions No Active Prescriptions or Reported Meds Referrals No Doctor, Assigned (PCP) Patient Instructions My [facility]
--- NOTE | 2017-07-26 06:40 | DIAGNOSTIC IMAGING REPORT ---
CHEST ONE VIEW PORTABLE CLINICAL HISTORY: fever WEAKNESS, NAUSEA, VOMITING, DIARRHEA. COMPARISON STUDY: 11/21/2016 FINDINGS: The cardiac and mediastinal contours are normal. There is no evidence of focal pulmonary consolidation. There is no evidence of failure. No pleural effusions are visualized.[ IMPRESSION: No active disease in the chest. Electronically signed by: Yony Ng M.D. 07/26/2017 6:39 AM Dictated Date/Time: 07/26/2017 6:39 AM
[2017-07-26] MEDS ORDERED: ACETAMINOPHEN IV 100 ML IV PRN (06:45)
[2017-07-26] MEDS ORDERED: ACETAMINOPHEN 325 MG TAB PO PRN (06:45)
[2017-07-26] MEDS ORDERED: ONDANSETRON 8MG OD TAB PO PRN (06:45)
[2017-07-26] MEDS ORDERED: ATOVAQUONE PO SCH ×2 (07:00)
[2017-07-26] MEDS ORDERED: PROGUANIL HCL PO SCH ×2 (07:00)
[2017-07-26 08:21] VITALS: BP 111/72; PULSE 63; TEMP 36.4; O2SAT 100
[2017-07-26] MEDS: NSS + 20MEQ KCL 1000ML 1,000 ML IV SCH ×4 (08:45→23:19)
[2017-07-26 08:56] VITALS: BP 111/72; PULSE 63; TEMP 36.4; O2SAT 100; Ht 170.2 cm; Wt 83.4 kg
--- NOTE | 2017-07-26 08:58 | Progress Note ---
Progress Note Date of Service Jul 26, 2017. Progress Note ID Consult Dictated #[id number] A/P: 1.Malaria -h/o p. vivax in 11/2016 - treated at [facility] -No recent travel, await final ID, low level parasitemia -Concern for relapse of p. vivax, does not appear the he received treatment for potential relapse in November by history -On Malarone currently, will check G6PD level and if normal, will then need primaquine x 14 days for p. vivax relapse -Continue supportive care, will follow, thank you
--- NOTE | 2017-07-26 10:14 | History and Physical ---
History & Physical Date & Time of Service: Jul 26, 2017 at 09:53 Chief Complaint: Malaria Primary Care Physician: No Doctor, Assigned History of Present Illness Source: patient 32 y/o M with a PMH of Malaria with Plasmodium Vivax presented with c/o flu like symptoms which started about 4-5 days prior to presentation. He complains of a headache, intermittent fevers/chills associated with shivering , nausea and vomiting . denies any neck discomfort. He was treated with Malarone at [facility] in November of 2016 for P. Vivax after a trip to [place]. He however denies following up with ID and did not take any primaquine for preventing relapse. he denies any CP, SOB or cough. denies any abdominal pain, diarrhea or other urinary symptoms. No recent international travel. 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 Allergies Coded Allergies: No Known Allergies (Unverified , 11/21/16) Home Medications No Active Prescriptions or Reported Meds Review of Systems Constitutional: + fever, + chills, + fatigue Eyes: No worsening of vision ENT: No hearing loss, No unusual epistaxis Respiratory: No cough, No sputum, No wheezing, No shortness of breath Cardiovascular: No chest pain Abdomen: + nausea, + vomiting, No pain, No diarrhea Musculoskeletal: No joint pain Genitourinary - Male: No hematuria, No dysuria, No urinary frequency, No urinary urgency Neurologic: + problem reported (headaches) Endocrine: + fatigue Integumentary: No rash Physical Exam Vital Signs Date Time Temp Pulse Resp B/P (MAP) Pulse Ox O2 Delivery O2 Flow Rate FiO2 07/26/17 08:56 36.4 63 18 111/72 100 Room Air 07/26/17 08:21 36.4 63 18 111/72 (85) 100 Room Air 07/26/17 07:50 80 18 90/54 99 07/26/17 06:35 36.8 82 18 100/57 99 Room Air 07/26/17 06:29 73 07/26/17 05:53 77 18 99/49 99 Room Air 07/26/17 05:13 80 18 91/49 99 Room Air 07/26/17 04:36 96 16 97/39 98 Room Air 07/26/17 04:14 37.7 95 24 92/44 95 Room Air 07/26/17 03:21 98 26 100 07/26/17 03:10 98 Room Air 07/26/17 03:06 97/53 07/26/17 03:00 101 07/26/17 02:26 37.8 125 32 112/37 96 Room Air General Appearance: WD/WN, + mild distress Eyes: normal inspection ENT: hearing grossly normal Neck: supple Respiratory/Chest: chest non-tender, lungs clear, normal breath sounds, no respiratory distress, no accessory muscle use Cardiovascular: regular rate, rhythm Abdomen/GI: normal bowel sounds, non tender, soft, no organomegaly Extremities/Musculoskelatal: no pedal edema Neurologic/Psych: alert, normal mood/affect, oriented x 3 Diagnostics Laboratory Results Results Past 24 Hours Test 07/26/17 02:50 07/26/17 03:00 07/26/17 05:15 07/26/17 08:48 Range/Units Influenza Type A Antigen Neg for Influ A NEG Influenza Type B Antigen Neg for Influ B NEG White Blood Count 8.04 4.8-10.8 K/uL Red Blood Count 4.91 4.7-6.1 M/uL Hemoglobin 15.0 14.0-18.0 g/dL Hematocrit 41.9 42-52 % Mean Corpuscular Volume 85.3 80-100 fL Mean Corpuscular Hemoglobin 30.5 25-34 pg Mean Corpuscular Hemoglobin Concent 35.8 32-36 g/dl Platelet Count 98 130-400 K/uL Mean Platelet Volume 9.9 7.4-10.4 fL Neutrophils (%) (Auto) 73.8 % Lymphocytes (%) (Auto) 6.6 % Monocytes (%) (Auto) 5.8 % Eosinophils (%) (Auto) 13.6 % Basophils (%) (Auto) 0.1 % Neutrophils # (Auto) 5.93 1.4-6.5 K/uL Lymphocytes # (Auto) 0.53 1.2-3.4 K/uL Monocytes # (Auto) 0.47 0.11-0.59 K/uL Eosinophils # (Auto) 1.09 0-0.5 K/uL Basophils # (Auto) 0.01 0-0.2 K/uL RDW Standard Deviation 39.2 36.4-46.3 fL RDW Coefficient of Variation 12.6 11.5-14.5 % Immature Granulocyte % (Auto) 0.1 % Immature Granulocyte # (Auto) 0.01 0.00-0.02 K/uL Platelet Estimate DECREASED Sodium Level 133 136-145 mmol/L Potassium Level 3.3 3.5-5.1 mmol/L Chloride Level 100 98-107 mmol/L Carbon Dioxide Level 24 21-32 mmol/L Anion Gap 9.0 3-11 mmol/L Blood Urea Nitrogen 17 7-18 mg/dl Creatinine 1.69 0.60-1.40 mg/dl Est Creatinine Clear Calc Drug Dose 66.0 ml/min Estimated GFR () 61.8 Estimated GFR (Non- 53.3 BUN/Creatinine Ratio 10.3 10-20 Random Glucose 101 70-99 mg/dl Lactic Acid Level 2.7 1.1 0.4-2.0 mmol/L Calcium Level 9.3 8.5-10.1 mg/dl Total Bilirubin 1.8 0.2-1 mg/dl Aspartate Amino Transf (AST/SGOT) 28 15-37 U/L Alanine Aminotransferase (ALT/SGPT) 20 12-78 U/L Alkaline Phosphatase 68 45-117 U/L Total Protein 8.1 6.4-8.2 gm/dl Albumin 4.0 3.4-5.0 gm/dl Globulin 4.1 2.5-4.0 gm/dl Albumin/Globulin Ratio 1.0 0.9-2 Urine Color YELLOW Urine Appearance CLEAR CLEAR Urine pH 7.0 4.5-7.5 Urine Specific [place] 1.006 1.000-1.030 Urine Protein NEG NEG Urine Glucose (UA) NEG NEG Urine Ketones TRACE NEG Urine Occult Blood NEG NEG Urine Nitrite NEG NEG Urine Bilirubin NEG NEG Urine Urobilinogen NEG NEG Urine Leukocyte Esterase NEG NEG Microbiology Results 07/26/17 Parasitology Test - Preliminary, Resulted Plasmodium Not Falciparum 07/26/17 Blood Culture, Received Pending 07/26/17 Blood Culture, Received Pending Diagnostic Radiology CHEST ONE VIEW PORTABLE CLINICAL HISTORY: fever WEAKNESS, NAUSEA, VOMITING, DIARRHEA. COMPARISON STUDY: 11/21/2016 FINDINGS: The cardiac and mediastinal contours are normal. There is no evidence of focal pulmonary consolidation. There is no evidence of failure. No pleural effusions are visualized.[ IMPRESSION: No active disease in the chest. Electronically signed by: Yony Ng M.D. 07/26/2017 6:39 AM Dictated Date/Time: 07/26/2017 6:39 AM CXR normal Impression Assessment and Plan 32 y/o M with a PMH of Malaria with Plasmodium Vivax presented with c/o flu like symptoms which started about 4-5 days prior to presentation. He complains of a headache, intermittent fevers/chills associated with shivering , nausea and vomiting . denies any neck discomfort. He was treated with Malarone at [facility] in November of 2016 for P. Vivax after a trip to [facility]. Fever with chills: likely sec to malaria relapse - P smear suggestive of plasmodium non falciparum - H/o Plasmodium vivax 11/2016 and did not receive prophylaxis for relapse - Received atovaquone-proguanil 1000mg/400 mg X3 days, day 1 today - Will need Primaquine X14 days to prevent relapse, G6PD pending - ID consult appreciated Acute renal failure: Creatine at 1.6, ?dehydration - Continue IVF , recheck BMP DVT prophylaxis: SCDS Full code Resident Physician Supervision Note: I interviewed and examined the patient. Discussed with Dr. Talamantes and agree with findings and plan as documented in the note. Any exceptions or clarifications are listed here: None Documented By: Prabhu Marie feeling lousy. recurrent fever. was treated for malaria in november, seems to have been lost to follow up uncertain circumstances vitals noted nad breathing unlabored no pallor or icterus fatigued labs noted recurrent/relapsed malaria - treatment as above, will need to ensure local ID follow up ARF - appearing much more likely related to dehydration from poor intake/etc than as a direct consequence of the malaria - IVF, follow. otherwise as above Resuscitation Status VTE Prophylaxis Will order VTE Prophylaxis: Yes Resident Tracking Resident Involvement: Resident Care Provided Care Provided: Adult Hospital Medicine
--- NOTE | 2017-07-26 10:14 | INFECT. DISEASE CONSULTATION ---
DATE OF CONSULTATION: 07/26/2017 HISTORY OF PRESENT ILLNESS: This is a 32-year-old gentleman who presented to the Emergency Room overnight with flu-like symptoms. I did receive a call from the Emergency Room this morning when the patient's peripheral smear was positive for non-falciparum malaria. He had similar symptoms in November and was transferred from [facility] to [place] for medication administration. He states that he did receive what he believes to be between 3 and 5 days of malaria medication and did have improvement of his symptoms. Since that time, he has not traveled out of the country. Per the Emergency Room, his previous smear was Plasmodium vivax and there was between 1% and 3% parasitemia on his smear. His current smear is positive. Blood cultures are pending. He did have a fever of 37.8 here, but is now afebrile. He was found to be mildly thrombocytopenic and also dehydrated. He does admit to having fevers at home for some days prior to admission. He denies any nausea or vomiting. He denies any neck stiffness, but does admit to headache. He denies any visual changes. His appetite has been stable. His remaining review of systems is unremarkable. He does not have any recent travel history and has not traveled outside of the country since his previous malaria diagnosis. His remaining review of systems is unremarkable. PAST MEDICAL HISTORY: Significant for malaria diagnosis in November of 2016. SOCIAL HISTORY: Negative for tobacco use or drug use. He drinks occasionally. 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 His previous travel in November was to [facility]. PHYSICAL EXAMINATION: VITAL SIGNS: He currently is afebrile. T-max is 37.8 upon arrival to the hospital, pulse 53, respiratory rate 18, blood pressure 111/72 and oxygen saturation is 100% on room air. GENERAL: He is awake, alert and oriented x3. He is in no acute distress. HEENT: Mucous membranes are dry. Extraocular muscles are intact. There is no nuchal rigidity. HEART: Regular. LUNGS: Clear. ABDOMEN: Soft. There is no edema. SKIN: Without rash. LABORATORY STUDIES: CBC reveals a white blood cell count of 8, hemoglobin 15, and platelets are 98. Lactic acid was elevated at 2.7. Chemistry reveals a sodium of 133, potassium 3.3, chloride 100, bicarbonate 24, BUN 17, creatinine 1.6, and glucose 101. LFTs are within normal limits. UA was negative. Flu swab was negative. Again, blood cultures are pending. He has a plasmodium falciparum at 0.6%-1%. His previous was Plasmodium vivax at 1.6%-2.5%. His current speciation has not been identified as of yet. Chest x-ray was unremarkable. ASSESSMENT AND PLAN: He will be treated again for malaria. I am concerned for relapse of a previous vivax infection in November. It is not clear if he was treated with primaquine per his history. He did not receive a prolonged course of medication, which would lead me to believe he was not treated with primaquine. I will check a G6PD today and if this is within normal limits, certainly he can receive a 14-day course of primaquine to treat for residual infection. We will follow along with you.
[2017-07-26] MEDS: PANTOprazole INJ 40 MG in SYRINGE 0 ML IV SCH (11:20)
[2017-07-26 13:55] LABS: ALBUMIN 2.7 gm/dl (3.4-5.0); CALCIUM 7.8 mg/dl (8.5-10.1); CREATININE 1.01 mg/dl (0.60-1.40); POTASSIUM 4.1 mmol/L (3.5-5.1); TOTAL PROTEIN 5.9 gm/dl (6.4-8.2)
[2017-07-26 14:09] VITALS: O2SAT 100
[2017-07-26 15:19] VITALS: BP 98/65; PULSE 62; TEMP 36.2; O2SAT 100
[2017-07-26 22:53] VITALS: BP 109/75; PULSE 65; TEMP 36.3; O2SAT 100
[2017-07-27] VITALS: O2SAT 100
[2017-07-27] MEDS: NSS + 20MEQ KCL 1000ML 1,000 ML IV SCH ×4 (05:20→22:06)
--- NOTE | 2017-07-27 06:53 | History and Physical ---
History & Physical Date & Time of Service: Jul 27, 2017 at 06:51 Chief Complaint: Malaria Primary Care Physician: No Doctor, Assigned History of Present Illness 32 y/o M with a PMH of Malaria with Plasmodium Vivax presented with c/o flu like symptoms which started about 4-5 days prior to presentation. He complains of a headache, intermittent fevers/chills associated with shivering , nausea and vomiting . denies any neck discomfort. He was treated with Malarone at [facility] in November of 2016 for P. Vivax after a trip to [place]. He however denies following up with ID and did not take any primaquine for preventing relapse. he denies any CP, SOB or cough. denies any abdominal pain, diarrhea or other urinary symptoms. No recent international travel. 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 Allergies Coded Allergies: No Known Allergies (Unverified , 11/21/16) Home Medications No Active Prescriptions or Reported Meds Physical Exam Vital Signs Date Time Temp Pulse Resp B/P (MAP) Pulse Ox O2 Delivery O2 Flow Rate FiO2 07/27/17 00:00 100 Room Air 07/26/17 22:53 36.3 65 18 109/75 (86) 100 Room Air 07/26/17 16:00 Room Air 07/26/17 15:19 36.2 62 18 98/65 (76) 100 Room Air 07/26/17 14:09 100 Room Air 07/26/17 08:56 36.4 63 18 111/72 100 Room Air 07/26/17 08:21 36.4 63 18 111/72 (85) 100 Room Air 07/26/17 07:50 80 18 90/54 99 General Appearance: WD/WN, + mild distress Eyes: normal inspection ENT: hearing grossly normal Neck: supple Respiratory/Chest: chest non-tender, lungs clear, normal breath sounds, no respiratory distress, no accessory muscle use Cardiovascular: regular rate, rhythm Abdomen/GI: normal bowel sounds, non tender, soft, no organomegaly Extremities/Musculoskelatal: no pedal edema Neurologic/Psych: alert, normal mood/affect, oriented x 3 Diagnostics Laboratory Results Results Past 24 Hours Test 07/26/17 08:48 07/26/17 13:06 07/26/17 14:03 07/27/17 06:42 Range/Units Lactic Acid Level 1.1 0.4-2.0 mmol/L Sodium Level 140 136-145 mmol/L Potassium Level 4.1 3.5-5.1 mmol/L Chloride Level 110 98-107 mmol/L Carbon Dioxide Level 24 21-32 mmol/L Anion Gap 7.0 3-11 mmol/L Blood Urea Nitrogen 13 7-18 mg/dl Creatinine 1.01 0.60-1.40 mg/dl Est Creatinine Clear Calc Drug Dose 110.5 ml/min Estimated GFR () 115.1 Estimated GFR (Non- 99.3 BUN/Creatinine Ratio 13.1 10-20 Random Glucose 95 70-99 mg/dl Calcium Level 7.8 8.5-10.1 mg/dl Total Bilirubin 0.9 0.2-1 mg/dl Direct Bilirubin 0.2 0-0.2 mg/dl Aspartate Amino Transf (AST/SGOT) 21 15-37 U/L Alanine Aminotransferase (ALT/SGPT) 15 12-78 U/L Alkaline Phosphatase 47 45-117 U/L Total Protein 5.9 6.4-8.2 gm/dl Albumin 2.7 3.4-5.0 gm/dl Bedside Glucose 80 70-99 mg/dl Impression Resuscitation Status VTE Prophylaxis Will order VTE Prophylaxis: Yes
[2017-07-27 07:07] LABS: HEMATOCRIT 32.8 % (42-52); HEMOGLOBIN 11.2 g/dL (14.0-18.0); MEAN CELL VOLUME 87.5 fL (80-100); MEAN CORPUSCULAR HEMOGLOBIN 29.9 pg (25-34); MEAN CORPUSCULAR HGB CONC 34.1 g/dl (32-36); MEAN PLATELET VOLUME 9.9 fL (7.4-10.4); PLATELET COUNT 87 K/uL (130-400); RED CELL DISTRIBUTION WIDTH CV 13.5 % (11.5-14.5); RED CELL DISTRIBUTION WIDTH SD 43.6 fL (36.4-46.3); WHITE BLOOD COUNT 4.33 K/uL (4.8-10.8)
[2017-07-27 07:11] LABS: PTT PATIENT 27.9 SECONDS (21.0-31.0)
[2017-07-27 07:35] LABS: ALBUMIN 2.7 gm/dl (3.4-5.0); CALCIUM 7.7 mg/dl (8.5-10.1); CREATININE 0.9 mg/dl (0.60-1.40); POTASSIUM 4.3 mmol/L (3.5-5.1); TOTAL PROTEIN 6.1 gm/dl (6.4-8.2)
[2017-07-27 07:43] LABS: BASO % 0.2 %; BASO ABS # 0.01 K/uL (0-0.2); EOS % 12.9 %; EOS ABS # 0.56 K/uL (0-0.5); IG# 0.02 K/uL (0.00-0.02); LYMPH % 34.6 %; MONO % 12.2 %; MONO ABS # 0.53 K/uL (0.11-0.59); NEUT % 39.6 %; NEUT ABS # 1.71 K/uL (1.4-6.5)
[2017-07-27] MEDS: ATOVAQUONE PO SCH (08:33)
[2017-07-27] MEDS: PROGUANIL HCL PO SCH (08:33)
[2017-07-27] MEDS ORDERED: PROGUANIL HCL PO SCH ×3 (09:00)
[2017-07-27] MEDS ORDERED: ATOVAQUONE PO SCH ×3 (09:00)
--- NOTE | 2017-07-27 10:50 | Progress Note ---
Subjective Date of Service: Jul 27, 2017. Subjective afebrile since admission, resting, no f/c. no pain. tolerating anti malaria meds. g6pd pending. blood cultures pending platelets remain low. remaining negative. 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 Status: Acute (8) Vomiting Status: Acute Objective Vital Signs Date Time Temp Pulse Resp B/P (MAP) Pulse Ox O2 Delivery O2 Flow Rate FiO2 07/27/17 07:30 Room Air 07/27/17 00:00 100 Room Air 07/26/17 22:53 36.3 65 18 109/75 (86) 100 Room Air 07/26/17 16:00 Room Air 07/26/17 15:19 36.2 62 18 98/65 (76) 100 Room Air 07/26/17 14:09 100 Room Air Physical Exam General Appearance: WD/WN, no apparent distress Eyes: normal inspection Neck: supple Respiratory/Chest: normal breath sounds, no respiratory distress Cardiovascular: regular rate, rhythm, no edema Extremities: no pedal edema Neurologic/Psychiatric: alert Skin: normal color Laboratory Results Item Value Date Time Blood Culture - Preliminary Resulted 07/26/17 0300 Blood NO GROWTH TO DATE. Blood Culture - Preliminary Resulted 07/26/17 0257 Blood NO GROWTH TO DATE. Parasitology Test - Final Complete 07/26/17 0300 Blood Plasmodium Not Falciparum Last 24 Hours Test 07/26/17 13:06 07/26/17 14:03 07/27/17 06:42 07/27/17 07:40 Sodium Level 140 mmol/L 138 mmol/L Potassium Level 4.1 mmol/L 4.3 mmol/L Chloride Level 110 mmol/L 113 mmol/L Carbon Dioxide Level 24 mmol/L 22 mmol/L Anion Gap 7.0 mmol/L 3.0 mmol/L Blood Urea Nitrogen 13 mg/dl 9 mg/dl Creatinine 1.01 mg/dl 0.90 mg/dl Est Creatinine Clear Calc Drug Dose 110.5 ml/min 124.0 ml/min Estimated GFR () 115.1 132.4 Estimated GFR (Non- 99.3 114.2 BUN/Creatinine Ratio 13.1 10.2 Random Glucose 95 mg/dl 99 mg/dl Calcium Level 7.8 mg/dl 7.7 mg/dl Total Bilirubin 0.9 mg/dl 0.6 mg/dl Direct Bilirubin 0.2 mg/dl mg/dl 0.2 mg/dl Aspartate Amino Transf (AST/SGOT) 21 U/L 26 U/L Alanine Aminotransferase (ALT/SGPT) 15 U/L 18 U/L Alkaline Phosphatase 47 U/L 48 U/L Total Protein 5.9 gm/dl 6.1 gm/dl Albumin 2.7 gm/dl 2.7 gm/dl Bedside Glucose 80 mg/dl White Blood Count 4.33 K/uL Red Blood Count 3.75 M/uL Hemoglobin 11.2 g/dL Hematocrit 32.8 % Mean Corpuscular Volume 87.5 fL Mean Corpuscular Hemoglobin 29.9 pg Mean Corpuscular Hemoglobin Concent 34.1 g/dl Platelet Count 87 K/uL Mean Platelet Volume 9.9 fL Neutrophils (%) (Auto) 39.6 % Lymphocytes (%) (Auto) 34.6 % Monocytes (%) (Auto) 12.2 % Eosinophils (%) (Auto) 12.9 % Basophils (%) (Auto) 0.2 % Neutrophils # (Auto) 1.71 K/uL Lymphocytes # (Auto) 1.50 K/uL Monocytes # (Auto) 0.53 K/uL Eosinophils # (Auto) 0.56 K/uL Basophils # (Auto) 0.01 K/uL RDW Standard Deviation 43.6 fL RDW Coefficient of Variation 13.5 % Immature Granulocyte % (Auto) 0.5 % Immature Granulocyte # (Auto) 0.02 K/uL Prothrombin Time 10.9 SECONDS Prothromb Time International Ratio 1.0 Activated Partial Thromboplast Time 27.9 SECONDS Partial Thromboplastin Ratio 1.1 Magnesium Level 2.1 mg/dl Chemistry Specimen Hemolysis Assessment and Plan (1) Malaria Assessment & Plan: continue treatment, await g6pd if nml will need 14 days primaquine.
[2017-07-27] MEDS: PANTOprazole INJ 40 MG in SYRINGE 0 ML IV SCH (11:05)
--- NOTE | 2017-07-27 13:29 | Family Medicine Progress Note ---
Progress Note Date of Service Jul 27, 2017. Subjective Pt evaluation today including: conversation w/ patient The patient was seen and examined at bedside. No acute overnight events. Pt appears tired, per overnight nurse he didn't sleep much, on exam pt is sleeping. After seeing patient in the afternoon after waking up he still appears tired and fatigued. He states he has no appetite due to nausea and feels that if he eats he will throw up. Plan of care was described to the patient and all questions were answered. Constitutional: + weakness, No fever, No chills, No sweats Respiratory: No cough, No sputum, No wheezing, No shortness of breath Cardiovascular: No chest pain, No orthopnea Abdomen: + nausea, No pain, No vomiting, No diarrhea, No constipation Male : No dysuria Endo: + fatigue Skin: No rash Objective Physical Exam General Appearance: WD/WN, + mild distress (pt appears ill) Eyes: normal inspection, PERRL ENT: normal ENT inspection Neck: supple Respiratory/Chest: chest non-tender, lungs clear, normal breath sounds, no respiratory distress, no accessory muscle use Cardiovascular: regular rate, rhythm, no edema, no gallop, no JVD, no murmur Abdomen: normal bowel sounds, non tender, soft, no organomegaly, no pulsatile mass Extremities: normal range of motion, non-tender, normal inspection, no pedal edema, no calf tenderness Neurologic/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 ) Skin: normal color, warm/dry, no rash Assessment and Plan 32M with a PMH of Malaria with Plasmodium Vivax presented c/o flu like symptoms which started about 4-5 days prior to presentation. He complains of a headache, intermittent fevers/chills associated with shivering , nausea and vomiting . denies any neck discomfort. He was [place] [facility] P. Vivax after a trip to [place]. 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 Hemoglobin dipped from 15 to 11.2, will monitor. Zofran 8mg ODT TID PRN Nausea. ID on board. Acute renal failure (resolved) Creatine at 1.6-->1.0 Lowering IVF from 200mls/hr to 125mls/hr. 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 Continued hospital stay due to lethargy, decreased PO intake and need for IVF. FULL CODE Resident Involvement: Resident Care Provided Care Provided: Adult Hospital Medicine Reviewed: Pt Seen/Exam by Me History feeling very tired. hasn't had much appetite. headache is persisting. has been sleeping most of morning. Constitutional: denies: fever Respiratory: negative: short of breath Cardiovascular: denies chest pain General Appearance: no apparent distress (sleeping, but easily arousable. appropriately responsive) Respiratory: no respiratory distress Neurologic/Psychiatric: alert, oriented x 3 Skin Characteristics: warm/dry Assessment/Plan Resident Physician Supervision Note: I independently interviewed and examined the patient and verified the engle history and physical, reviewed labs and image studies, discussed the case with the resident Dr. Barboza and agree with the findings and care plan.
[2017-07-27 15:44] VITALS: BP 107/65; PULSE 72; TEMP 36.5; O2SAT 100
[2017-07-28] VITALS: BP 116/69; PULSE 59; TEMP 36.4; O2SAT 100
[2017-07-28] MEDS: NSS + 20MEQ KCL 1000ML 1,000 ML IV SCH (06:02)
[2017-07-28 07:16] VITALS: BP 118/79; PULSE 68; TEMP 36.5; O2SAT 100
[2017-07-28 07:25] LABS: BASO % 0.2 %; BASO ABS # 0.01 K/uL (0-0.2); EOS % 5.9 %; EOS ABS # 0.29 K/uL (0-0.5); HEMOGLOBIN 11.5 g/dL (14.0-18.0); LYMPH % 35.8 %; LYMPH ABS # 1.75 K/uL (1.2-3.4); MEAN CORPUSCULAR HEMOGLOBIN 29.4 pg (25-34); MEAN CORPUSCULAR HGB CONC 33.8 g/dl (32-36); MEAN PLATELET VOLUME 9.8 fL (7.4-10.4); MONO % 12.3 %; NEUT % 43.8 %; NEUT ABS # 2.14 K/uL (1.4-6.5); PLATELET COUNT 109 K/uL (130-400); RED CELL DISTRIBUTION WIDTH CV 13.7 % (11.5-14.5); RED CELL DISTRIBUTION WIDTH SD 43.6 fL (36.4-46.3); WHITE BLOOD COUNT 4.89 K/uL (4.8-10.8)
[2017-07-28 07:29] LABS: PTT PATIENT 27.3 SECONDS (21.0-31.0)
[2017-07-28 07:49] LABS: ALBUMIN 3.1 gm/dl (3.4-5.0); CALCIUM 8.7 mg/dl (8.5-10.1); CREATININE 0.84 mg/dl (0.60-1.40); POTASSIUM 4.2 mmol/L (3.5-5.1)
[2017-07-28] MEDS: PROGUANIL HCL PO SCH (07:52)
[2017-07-28] MEDS: ATOVAQUONE PO SCH (07:52)
[2017-07-28 07:53] LABS: TOTAL PROTEIN 6.5 gm/dl (6.4-8.2)
[2017-07-28 10:35] VITALS: BP 118/79; PULSE 68; TEMP 36.5; O2SAT 100
[2017-07-28] MEDS ORDERED: ATOV250T PO (11:51)
--- NOTE | 2017-07-28 11:56 | Discharge Instructions ---
Discharge Instructions Date of Service Jul 28, 2017. Admission Reason for Admission: Malaria Discharge Discharge Diagnosis / Problem: Malaria Discharge Goals Goal(s): Decrease discomfort, Improve function, Increase independence, Improve disease control, Improve nutritional status, Learn about illness Activity Recommendations Activity Limitations: per Instructions/Follow-up section . Instructions / Follow-Up Instructions / Follow-Up You have been found to have a relapse of your malaria. Please take your Malarone medications as prescribed for the next 3 days. A prescription has been sent to the [facility] on [address]. Please start this medication tomorrow on 07/29/2017. A follow up appointment will be made for your at the [facility] at [address], [address]. Please keep this appointment. At this appointment your lab work will be reviewed and a new medication (Primaquin 30mg x 14 days) may be prescribed if your lab results have deemed it safe. Information on malaria will be printed for you on discharge. Please read this information carefully. Current Hospital Diet Patient's current hospital diet: Regular Diet Discharge Diet Recommended Diet: Regular Diet Pending Studies Studies pending at discharge: yes List of pending studies: G6PD lab value School Instructions Additional Instructions: Geronimo Miranda was under our care from July 26, 2017 to July 28, 2017. Geronimo may return to school on July 31, 2017 or sooner if he feels up for it. There are no restrictions once he returns to school. If you have any questions please do not hesitate to contact the hospital [phone] or the family medicine clinic at [phone]. Medical Emergencies . Who to Call and When: Medical Emergencies: If at any time you feel your situation is an emergency, please call 911 immediately. . Non-Emergent Contact Non-Emergency issues call your: Primary Care Provider (Dr. Renny Barboza, [facility]) . . "Provider Documentation" section prepared by Renny Barboza. . Resident Involvement: Resident Care Provided Care Provided: Adult Hospital Medicine
--- NOTE | 2017-07-28 12:05 | Discharge Summary ---
Discharge Summary Date of Service Jul 28, 2017. Discharge Summary Admission Date: Jul 26, 2017 at 06:40 Discharge Date: Jul 28, 2017 Discharge Disposition: Home Principal Diagnosis: Plasmodium Vivax infection Consultations: ID Consult: He will be treated again for malaria. I am concerned for relapse of a previous vivax infection in November. It is not clear if he was treated with primaquine per his history. He did not receive a prolonged course of medication, which would lead me to believe he was not treated with primaquine. I will check a G6PD today and if this is within normal limits, certainly he can receive a 14-day course of primaquine to treat for residual infection. We will follow along with you. Medication Reconciliation New Medications: Atovaquone-Proguanil Hcl (Malarone) 1 Tab Tab 4 TAB PO DAILY for 3 Days, #12 TABS Discharge Exam The patient was seen and examined at bedside. No acute overnight events. Looks much better than previous day. Has appetite and is eating and drinking well. Plan of care was described to the patient and all questions were answered. Constitutional: No fever, No chills, No sweats Respiratory: No cough, No sputum, No wheezing, No shortness of breath Cardiovascular: No chest pain, No orthopnea Abdomen: + nausea, No pain, No vomiting, No diarrhea, No constipation Male : No dysuria Endo: + fatigue Skin: No rash Physical Exam General Appearance: WD/WN,no acute distress. 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 Skin: normal color, warm/dry, no rash Hospital Course 32M with a PMH of Malaria with Plasmodium Vivax presented c/o flu like symptoms which started about 4-5 days prior to presentation. He complains of a headache, intermittent fevers/chills associated with shivering , nausea and vomiting . denies any neck discomfort. He was treated with Malarone at [facility] [place] [facility] in November of 2016 for P. Vivax after a trip to [place]. He was diagnosed with a recurrent P Vivax infection and started on Malarone. After consultation with ID it was decided that the patient should be treated with a 5 day course of Malarone (pt received two days inpatient) and will receive two days outpatient. I called the [facility] on [address] and they carry 250/100mg tablets of Malarone - he will need 4 tabs daily x 3 days. They do not carry Primaquine. Patient will need two weeks of Primaquine after his G6PD lab result comes back. Per Dr. Garcia there is no urgency to the Primaquine. He will need to follow up with his PCP as outpatient to get the Primaquine. I have made an appointment for him to follow up with me next Thursday - at that visit I will review the G6PD and prescribe Primaquine if the G6PD test is negative. Above plan was discussed with patient and he verbalized understanding. Total Time Spent: Greater than 30 minutes This includes examination of the patient, discharge planning, medication reconciliation, and communication with other providers. Discharge Instructions Please refer to the electronic Patient Visit Report (Discharge Instructions) for additional information. Additional Copies To Renny Barboza M.D. Resident Involvement: Resident Care Provided Care Provided: Adult Hospital Medicine Reviewed: Pt Seen/Exam by Me History headache resolved. appetite improved this morning Constitutional: denies: fever Respiratory: negative: short of breath Cardiovascular: denies chest pain General Appearance: no apparent distress Neck: supple Respiratory: lungs clear, no respiratory distress Cardiovascular: regular rate, rhythm Gastrointestinal: soft Neurologic/Psychiatric: alert, oriented x 3 Skin Characteristics: warm/dry Assessment/Plan Resident Physician Supervision Note: I independently interviewed and examined the patient and verified the engle history and physical, reviewed labs and image studies, discussed the case with the resident Dr. Barboza and agree with the findings and care plan. Time spent in discharge 35 min
== END 2017-07-28 14:33 | disposition home or self-care (01) | DRG 868 ==
LOC: C.EDB 02:22 → C.MS2W 06:40 → ENRESERV 07:00
PROVIDERS: ADMIT Hospitalist; ATTEND Family Medicine
DX: B50.9 Plasmodium falciparum malaria, unspecified (principal); N17.9 Acute kidney failure, unspecified